=== PATIENT | male | born 1945 | race Caucasian/White ===

== ENCOUNTER 2017-07-21 06:35 | Day surgery (SDC) | payer MEDICARE, BC ==
[2017-07-20 11:25] LABS: BASOPHILS % (AUTO) 0.3 % (0-1); EOSINOPHILS # (AUTO) 0.2 X10'3 (0-0.9); EOSINOPHILS % (AUTO) 2.3 % (0-6); HEMATOCRIT 46.5 % (42.0-52.0); HEMOGLOBIN 16.4 g/dl (14.0-17.9); LYMPHOCYTES # (AUTO) 0.9 X10'3 (1.1-4.8); LYMPHOCYTES % (AUTO) 12.9 % (21-51); MEAN CORPUSCULAR HEMOGLOBIN 32.6 PG (27.0-31.0); MEAN CORPUSCULAR HGB CONC 35.4 % (33.0-36.5); MEAN CORPUSCULAR VOLUME 92.2 FL (78-98); MEAN PLATELET VOLUME 8.9 FL (7.4-10.4); MONOCYTES # (AUTO) 0.5 X10'3 (0-0.9); MONOCYTES % (AUTO) 7.8 % (2-12); NEUTROPHILS # (AUTO) 5.2 X10'3 (1.8-7.7); NEUTROPHILS % (AUTO) 76.7 % (42-75); PLATELET COUNT 234 X10'3 (140-440); RED BLOOD COUNT 5.04 X10'6 (4.70-6.10); RED CELL DISTRIBUTION WIDTH 13.7 % (11.5-14.5); WHITE BLOOD COUNT 6.8 X10'3 (4.5-11.0)
[2017-07-20 11:34] LABS: ALBUMIN 4.2 G/DL (3.4-5.0); ANION GAP 15 (8-16); BLOOD UREA NITROGEN 9 MG/DL (7-18); BUN/CREATININE RATIO 9.7 (5.4-32.0); CALCIUM 9.9 MG/DL (8.5-10.1); CHLORIDE 99 MMOL/L (99-107); CREATININE 0.93 MG/DL (0.60-1.10); GLUCOSE 127 MG/DL (70-104); POTASSIUM 3.8 MMOL/L (3.5-5.1); SODIUM 135 MMOL/L (135-145); eGFR 80 ML/MIN
[2017-07-20 11:35] LABS: PARTIAL THROMBOPLASTIN TIME 29 SECONDS (22-32); PROTHROMBIN TIME 10.2 SECONDS (9.0-12.0)
[2017-07-21] VITALS (13 sets, daily range): BP systolic 88–109; BP diastolic 47–68
[~2017-07-21] VITALS: Ht 162.6 cm; Wt 76.7 kg
[~2017-07-21 06:35] MED LIST: CLOP75TA35 PO; EZET1TAB35 PO; LISI-222 PO; LORA0.5T PO; METO100T7 PO; NITR0.4T51 SL; SILD50TA PO; WEL100T PO
[2017-07-21] MEDS ORDERED: METO100T14 PO (06:58)
[2017-07-21] MEDS ORDERED: ATOR10TA PO (06:58)
[2017-07-21] MEDS ORDERED: SERT25TA PO (06:58)
[2017-07-21] MEDS ORDERED: ondansetron/PF 4mg/2ml inj IV STA (07:32)
[2017-07-21] MEDS ORDERED: fentaNYL/PF 50MCG/1 ML 2ML syringe ONE (07:32)
[2017-07-21] MEDS ORDERED: iohexol 350 MG/ML 50ML vial IV ONE (07:32)
[2017-07-21] MEDS ORDERED: nitroGLYCERIN-Tridil 50MG/D5W 250 ML IV ONE (07:32)
[2017-07-21] MEDS ORDERED: LIDOcaine 1%/PF (10mg/ml) 5ml vial ONE (07:32)
[2017-07-21] MEDS ORDERED: heparin 1,000unit/ml 10ml vial 10 ML ONE (07:32)
[2017-07-21] MEDS ORDERED: iohexol 350MG/ML 100ml bottle IV ONE (07:32)
[2017-07-21] MEDS ORDERED: midazolam 2 mg/2 ml injection ONE (07:32)
[2017-07-21] MEDS ORDERED: normal saline 1000ml 1,000 ML IV SCH (07:45)
[2017-07-21] MEDS ORDERED: diphenhydrAMINE 25mg capsule PO PRN (07:45)
[2017-07-21] MEDS ORDERED: LORazepam 0.5 MG tablet PO PRN (07:45)
[2017-07-21 13:51] LABS: ISTAT Hct MIX 32 %PCV (42-52); ISTAT O2 SATURATION MIX VENOUS 68 % (60-80); ISTAT SOURCE MIX
[2017-07-21 13:51] LABS: ISTAT HGB ART 11.2 g/dl (14.0-18.0); ISTAT Hct ART 33 %PCV (42-52); ISTAT O2 SATURATION ARTERIAL 97 % (95-98); ISTAT SOURCE ART
[2017-07-29] MEDS ORDERED: IMDUR PO (16:13)
== END 2017-07-21 15:35 | disposition home or self-care (01) ==
LOC: SSTAY O 06:35
PROVIDERS: ATTEND Internal Medicine Cardiovascular Disease
DX: I25.118 Atherosclerotic heart disease of native coronary artery with other forms of angina pectoris (principal); E78.5 Hyperlipidemia, unspecified; F41.9 Anxiety disorder, unspecified; G47.30 Sleep apnea, unspecified; I10 Essential (primary) hypertension; I27.20 Pulmonary hypertension, unspecified; I35.0 Nonrheumatic aortic (valve) stenosis; Z79.02 Long term (current) use of antithrombotics/antiplatelets; Z83.3 Family history of diabetes mellitus; Z87.891 Personal history of nicotine dependence; Z98.61 Coronary angioplasty status; Z98.890 Other specified postprocedural states; Z72.89 Other problems related to lifestyle; Z79.899 Other long term (current) drug therapy
CPT/HCPCS: 36415; 80048; 82803; 85014; 85025; 85610; 85730; 93005; 93460; 93567; 99152; 99153; A6257; C1769; J1644; J2001; J2250; J2405; J3010; J3490; J7030; Q0163; Q9967; A4620

== ENCOUNTER 2017-08-02 05:46 | Inpatient (IN) | payer MEDICARE, BC ==
[2017-07-29 13:42] LABS: BASOPHILS % (AUTO) 0.8 % (0-1); EOSINOPHILS # (AUTO) 0.3 X10'3 (0-0.9); EOSINOPHILS % (AUTO) 5.6 % (0-6); LYMPHOCYTES # (AUTO) 1.6 X10'3 (1.1-4.8); LYMPHOCYTES % (AUTO) 28.2 % (21-51); MEAN CORPUSCULAR HEMOGLOBIN 32.7 PG (27.0-31.0); MEAN CORPUSCULAR VOLUME 93.2 FL (78-98); MEAN PLATELET VOLUME 9.5 FL (7.4-10.4); MONOCYTES # (AUTO) 0.7 X10'3 (0-0.9); MONOCYTES % (AUTO) 12.2 % (2-12); NEUTROPHILS % (AUTO) 53.2 % (42-75); PRE OP HEMATOCRIT 41.6 % (42.0-52.0); PRE OP HEMOGLOBIN 14.6 g/dL (14.0-17.9); PRE OP PLATELET COUNT 252 X10'3 (140-440); RED BLOOD COUNT 4.46 X10'6 (4.70-6.10); RED CELL DISTRIBUTION WIDTH 13.6 % (11.5-14.5)
[2017-07-29 13:51] LABS: PRE OP INR 0.9 INR; PRE OP PROTIME 9.7 SECONDS (9.0-12.0)
[2017-07-29 13:51] LABS: CLARITY,URINE CLEAR (Clear); COLOR,URINE YELLOW (Yellow); GLUCOSE, URINE NEGATIVE (Neg); KETONES,URINE NEGATIVE (Neg); LEUKOCYTE ESTERASE ,URINE NEGATIVE (Neg); NITRITES, URINE NEGATIVE (Neg); OCCULT BLOOD,URINE NEGATIVE (Neg); PH,URINE 5.5 (4.8-8.0); PROTEIN,URINE NEGATIVE (Neg); UROBILINOGEN,URINE 0.2 E.U/dL (0.2-1.0)
[2017-07-29 13:53] LABS: HEMOGLOBIN A1C 5.1 % (4.5-6.2)
[2017-07-29 13:56] LABS: UA COLLECTION TYPE CLN CATCH MIDSTREAM
[2017-07-29 14:03] LABS: ALBUMIN 3.7 G/DL (3.4-5.0); ALKALINE PHOSPHATASE 96 IU/L (46-116); BLOOD UREA NITROGEN 12 MG/DL (7-18); BUN/CREATININE RATIO 12.5 (5.4-32.0); CALCIUM 9.6 MG/DL (8.5-10.1); CHLORIDE 103 MMOL/L (99-107); CREATININE 0.96 MG/DL (0.60-1.10); PRE OP ALT 45 U/L (30-65); PRE OP ANION GAP 11 (8-16); PRE OP AST 43 U/L (10-37); PRE OP BILIRUB, TOTAL 0.4 MG/DL (0.0-1.0); PRE OP GLUCOSE 89 MG/DL (70-104); PRE OP POTASSIUM 3.8 MMOL/L (3.4-5.1); PRE OP SODIUM 141 MMOL/L (135-145); TOTAL PROTEIN 7.4 G/DL (6.4-8.2); eGFR 77 ML/MIN
[2017-07-29 15:02] LABS: ABG BASE EXCESS 0.8 mmol/L (-2.0-3.0); ABG HCO3 24.6 mmol/L (22.0-26.0); ABG OXYGEN SATURATION 95.4 % (95-98); ABG PCO2 (T) 36.9 mmHg (35.0-48.0); ABG PH (T) 7.441 (7.350-7.450); ALLEN'S TEST Positive; FCOHb 0.5 % (0.5-1.5); FMetHb 0.2 % (0.3-1.12); FO2Hb 94.7 % (94-100)
[~2017-08-02] VITALS: Ht 162.6 cm; Wt 74.9 kg
[2017-08-02] VITALS (17 sets, daily range): BP systolic 100–136; BP diastolic 58–78
[2017-08-02] MEDS: insulin regular, human inj. 100 UNITS in normal saline 100ml IV IV SCH ×14 (05:30→20:59)
[~2017-08-02 05:46] MED LIST changes: +ATOR10TA PO; -CLOP75TA35 PO; -EZET1TAB35 PO; +IMDUR PO; -LORA0.5T PO; +LORazepam 2 mg/ml vial IV PRN; +METO100T14 PO; -METO100T7 PO; +SERT25TA PO; -SILD50TA PO; -WEL100T PO; +cefazolin/dext.iso 2gm/50ml 50 ML IV ONE; +dextrose 50%-water 50ml dispensing syringe IV PRN; +famotidine 20mg tablet PO ONE; +insulin Lispro (HumaLOG) vial - multi-dose SQ PRN; +metoprolol tartrate 12.5mg (1/2 tablet) PO ONE; +ringers solution, lacted 1,000 ML IV SCH; +vancomycin inj 1,500 MG in normal saline 300ml IV soln IV ONE
[2017-08-02] MEDS: mupirocin 2% ointment 22GM TP SCH ×2 (06:24→20:00)
[2017-08-02] MEDS ORDERED: LIDOcaine 1% (10mg/ml) 2ml vial ONE (06:30)
[2017-08-02] MEDS ORDERED: rocuronium 10mg/ml inj IV ONE ×2 (07:22)
[2017-08-02] MEDS ORDERED: LIDOcaine 2% (20mg/ml) 5ml vial ONE (07:22)
[2017-08-02] MEDS ORDERED: SUFENTANIL CITRATE 50 MCG/ML 2ml ampule IV ONE (07:22)
[2017-08-02] MEDS ORDERED: etomidate 2mg/ml inj. ONE (07:22)
[2017-08-02] MEDS ORDERED: MIDAZolam 1mg/ml 10ml vial ONE (07:22)
[2017-08-02] MEDS ORDERED: phenylephrine 10mg/ml inj IV ONE ×2 (07:27→10:00)
[2017-08-02] MEDS ORDERED: papaverine 30 mg/ml 2ml inj. IA ONE (07:30)
[2017-08-02] MEDS ORDERED: heparin 10,000 units/1 ML INJ IR ONE (07:30)
[2017-08-02] MEDS ORDERED: ipratropium/albuterol 3ml nebule IH PRN (07:50)
[2017-08-02] MEDS ORDERED: heparin 10,000 units/1 ML INJ ONE ×2 (08:00→10:00)
[2017-08-02] MEDS ORDERED: papaverine 30 mg/ml 2ml inj. ONE (08:00)
[2017-08-02 09:15] LABS: ACT @ 1.70 U 313 SEC (193-297); ACT @ 2.84 U 453 SEC (260-420); BASELINE ACT 157 SEC (101-148); PATIENT WEIGHT 74.0k KG
[2017-08-02 09:15] LABS: ABG BASE EXCESS 0.4 mmol/L (-2.0-3.0); ABG HCO3 22.9 mmol/L (22.0-26.0); ABG OXYGEN SATURATION 99.6 % (95-98); ABG PCO2 30.9 mmHg (35.0-45.0); ABG PH 7.487 (7.350-7.450); ABG PO2 359.3 mmHg (60.0-100.0); CL (ABG) 106 mmol/L (99-107); FCOHb 0.2 % (0.5-1.5); FMetHb 0.3 % (0.3-1.12); FO2Hb 99.1 % (94-100); GLUCOSE (ABG) 106 mg/dl (70-105); IONIZED CA (ABG) 1.19 mmol/L (1.03-1.32); K (ABG) 3.8 mmol/L (3.3-5.1); NA (ABG) 136 mmol/L (135-145); TOTAL HEMOGLOBIN 13.8 G/dl (14.0-18.0)
[2017-08-02] MEDS ORDERED: sodium bicarbonate (8.4%) 1 mEq/ml syringe ONE (10:00)
[2017-08-02] MEDS ORDERED: calcium chloride 100 MG/1 ML inj IV ONE (10:00)
[2017-08-02] MEDS ORDERED: MAGNESIUM SULFATE 4 MEQ/ML (1gm/2ml) injection ONE (10:00)
[2017-08-02] MEDS ORDERED: aminocaproic acid 250 MG/1 ML inj. ONE (10:00)
[2017-08-02] MEDS ORDERED: methylPREDNISolone sod. succ. 500mg inj ONE (10:00)
[2017-08-02] MEDS ORDERED: heparin 1,000 units/ml 10ml inj ONE (10:00)
[2017-08-02] MEDS ORDERED: LIDOcaine 2% (20 mg/ml) 5ml cardiac syringe ONE (10:00)
[2017-08-02] MEDS ORDERED: potassium Cl 2 mEq/ml inj IV ONE (10:00)
[2017-08-02 10:26] LABS: ABG BASE EXCESS VENOUS -2.5 mmol/L; ABG HCO3 VENOUS 24.1 mmol/L; ABG PCO2 VENOUS 48.6 mmHg; CL (ABG) 103 mmol/L (99-107); FCOHb VENOUS 0.1 %; FHHb VENOUS 11.9 %; FMetHb VENOUS 0.3 %; FO2Hb VENOUS 87.7 %; GLUCOSE (ABG) 130 mg/dl (70-105); IONIZED CA (ABG) 1.23 mmol/L (1.03-1.32); K (ABG) 4.1 mmol/L (3.3-5.1); NA (ABG) 136 mmol/L (135-145); TOTAL HEMOGLOBIN 13.7 G/dl (14.0-18.0)
[2017-08-02 11:01] LABS: ABG BASE EXCESS -1.2 mmol/L (-2.0-3.0); ABG HCO3 22.8 mmol/L (22.0-26.0); ABG PCO2 35.5 mmHg (35.0-45.0); ABG PH 7.426 (7.350-7.450); ABG PO2 316.4 mmHg (60.0-100.0); CL (ABG) 103 mmol/L (99-107); FCOHb 0.2 % (0.5-1.5); FMetHb 0.3 % (0.3-1.12); FO2Hb 98.5 % (94-100); GLUCOSE (ABG) 113 mg/dl (70-105); IONIZED CA (ABG) 1.03 mmol/L (1.03-1.32); K (ABG) 4.8 mmol/L (3.3-5.1); NA (ABG) 132 mmol/L (135-145); TOTAL HEMOGLOBIN 10.2 G/dl (14.0-18.0)
[2017-08-02 11:25] LABS: ABG BASE EXCESS VENOUS -1.3 mmol/L; ABG HCO3 VENOUS 24.1 mmol/L; ABG PCO2 VENOUS 43.2 mmHg; ABG PO2 VENOUS 37.9 mmHg; CL (ABG) 104 mmol/L (99-107); FMetHb VENOUS 0.4 %; FO2Hb VENOUS 72.6 %; GLUCOSE (ABG) 106 mg/dl (70-105); IONIZED CA (ABG) 1.08 mmol/L (1.03-1.32); K (ABG) 4.9 mmol/L (3.3-5.1); NA (ABG) 134 mmol/L (135-145); TOTAL HEMOGLOBIN 10.9 G/dl (14.0-18.0)
[2017-08-02 11:30] LABS: ABG BASE EXCESS -1.1 mmol/L (-2.0-3.0); ABG HCO3 23.9 mmol/L (22.0-26.0); ABG PCO2 40.7 mmHg (35.0-45.0); ABG PH 7.386 (7.350-7.450); ABG PO2 274.5 mmHg (60.0-100.0); CL (ABG) 105 mmol/L (99-107); FCOHb 0.3 % (0.5-1.5); FMetHb 0.3 % (0.3-1.12); FO2Hb 98.4 % (94-100); GLUCOSE (ABG) 119 mg/dl (70-105); IONIZED CA (ABG) 1.06 mmol/L (1.03-1.32); K (ABG) 4.6 mmol/L (3.3-5.1); NA (ABG) 134 mmol/L (135-145); TOTAL HEMOGLOBIN 11.2 G/dl (14.0-18.0)
[2017-08-02 11:56] LABS: ABG BASE EXCESS 0.4 mmol/L (-2.0-3.0); ABG HCO3 24.7 mmol/L (22.0-26.0); ABG OXYGEN SATURATION 98.8 % (95-98); ABG PCO2 38.7 mmHg (35.0-45.0); ABG PH 7.423 (7.350-7.450); ABG PO2 243.1 mmHg (60.0-100.0); CL (ABG) 108 mmol/L (99-107); FCOHb 0.2 % (0.5-1.5); FMetHb 0.4 % (0.3-1.12); FO2Hb 98.2 % (94-100); GLUCOSE (ABG) 109 mg/dl (70-105); K (ABG) 4.6 mmol/L (3.3-5.1); NA (ABG) 134 mmol/L (135-145); TOTAL HEMOGLOBIN 10.3 G/dl (14.0-18.0)
[2017-08-02 12:31] LABS: ABG BASE EXCESS VENOUS -0.7 mmol/L; ABG HCO3 VENOUS 23.6 mmol/L; ABG PCO2 VENOUS 37.6 mmHg; CL (ABG) 105 mmol/L (99-107); FCOHb VENOUS 0.3 %; FHHb VENOUS 19.4 %; FMetHb VENOUS 0.6 %; FO2Hb VENOUS 79.7 %; GLUCOSE (ABG) 103 mg/dl (70-105); IONIZED CA (ABG) 1.24 mmol/L (1.03-1.32); K (ABG) 3.6 mmol/L (3.3-5.1); NA (ABG) 138 mmol/L (135-145)
[2017-08-02] MEDS ORDERED: nitroGLYCERIN-Tridil 50MG/D5W 250 ML IV PRN (12:49)
[2017-08-02] MEDS ORDERED: niCARDipine/sod cl 20mg/200ml 200 ML IV PRN (12:49)
[2017-08-02] MEDS ORDERED: DOPamine 400mg/D5W 250ml 250 ML IV PRN (12:49)
[2017-08-02] MEDS ORDERED: potassium Cl 20mEq/100mL bag 100 ML IV PRN (12:50)
[2017-08-02] MEDS ORDERED: acetaminophen 325mg tablet PO PRN (12:50)
[2017-08-02] MEDS ORDERED: magnesium hydroxide 30ml (MOM) UD suspension PO PRN (12:50)
[2017-08-02] MEDS ORDERED: sodium phosphate inj. 15 MMOL in dextrose 5%-water 150 ML IV PRN (12:50)
[2017-08-02] MEDS ORDERED: metoclopramide 5 mg/ml inj IV PRN (12:50)
[2017-08-02] MEDS ORDERED: normal saline 250ml IV soln 250 ML IV PRN (12:50)
[2017-08-02] MEDS ORDERED: magnesium 4gm in 100ml NS 100 ML IV PRN (12:50)
[2017-08-02] MEDS ORDERED: insulin regular, human inj. 100 UNITS in normal saline 100ml IV soln 100 ML IV SCH ×2 (12:50)
[2017-08-02] MEDS ORDERED: dextrose 50%-water 50ml dispensing syringe IV PRN (12:50)
[2017-08-02] MEDS ORDERED: sodium phosphate inj. 30 MMOL in dextrose 5%-water 250 ML IV PRN (12:50)
[2017-08-02] MEDS ORDERED: Neutra Phos packet PO PRN (12:50)
[2017-08-02] MEDS ORDERED: morphine 2 MG/ML inj. syringe IV PRN (12:50)
[2017-08-02] MEDS ORDERED: ondansetron/PF 4mg/2ml inj IV PRN (12:50)
[2017-08-02] MEDS ORDERED: insulin Lispro (HumaLOG) vial - multi-dose SQ SCH (13:00)
[2017-08-02 13:10] LABS: ABG BASE EXCESS 1.7 mmol/L (-2.0-3.0); ABG HCO3 25.2 mmol/L (22.0-26.0); ABG OXYGEN SATURATION 95.8 % (95-98); ABG PCO2 (T) 34.4 mmHg (35.0-48.0); ABG PH (T) 7.479 (7.350-7.450); ABG PO2 (T) 76.1 mmHg (83-108); FCOHb 0.3 % (0.5-1.5); FMetHb 0.3 % (0.3-1.12); FO2Hb 95.2 % (94-100); MINUTE VOLUME 10 L/min; PATIENT TEMPERATURE 36.1; PEEP 5 cm H2O; RESPIRATORY RATE 14 b/min; RESPIRATORY RATE (OBSERVED) 14 b/min; TIDAL VOLUME 600 mL; TOTAL HEMOGLOBIN 13.8 G/dl (14.0-18.0)
[2017-08-02 13:17] LABS: BASOPHILS % (AUTO) 0.2 % (0-1); EOSINOPHILS # (AUTO) 0.1 X10'3 (0-0.9); EOSINOPHILS % (AUTO) 1.1 % (0-6); HEMATOCRIT 37.5 % (42.0-52.0); HEMOGLOBIN 13.2 g/dl (14.0-17.9); LYMPHOCYTES # (AUTO) 0.7 X10'3 (1.1-4.8); LYMPHOCYTES % (AUTO) 7.5 % (21-51); MEAN CORPUSCULAR HEMOGLOBIN 32.8 PG (27.0-31.0); MEAN CORPUSCULAR HGB CONC 35.1 % (33.0-36.5); MEAN CORPUSCULAR VOLUME 93.3 FL (78-98); MONOCYTES # (AUTO) 0.5 X10'3 (0-0.9); MONOCYTES % (AUTO) 4.7 % (2-12); NEUTROPHILS # (AUTO) 8.5 X10'3 (1.8-7.7); NEUTROPHILS % (AUTO) 86.5 % (42-75); PLATELET COUNT 164 X10'3 (140-440); RED BLOOD COUNT 4.02 X10'6 (4.70-6.10); RED CELL DISTRIBUTION WIDTH 12.9 % (11.5-14.5); WHITE BLOOD COUNT 9.8 X10'3 (4.5-11.0)
[2017-08-02 13:24] LABS: PARTIAL THROMBOPLASTIN TIME 25 SECONDS (22-32); PROTHROMBIN TIME 10.8 SECONDS (9.0-12.0)
[2017-08-02] MEDS: sodium chloride 0.45% 1,000 ML IV SCH (13:31)
[2017-08-02 13:34] LABS: ALANINE AMINOTRANSFERASE 27 U/L (12-78); ALBUMIN 2.6 G/DL (3.4-5.0); ALKALINE PHOSPHATASE 75 IU/L (46-116); ANION GAP 8 (8-16); ASPARTATE AMINO TRANSFERASE 44 U/L (10-37); BILIRUBIN,TOTAL 0.6 MG/DL (0.1-1.0); BLOOD UREA NITROGEN 14 MG/DL (7-18); BUN/CREATININE RATIO 14.9 (5.4-32.0); CALCIUM 8.6 MG/DL (8.5-10.1); CHLORIDE 110 MMOL/L (99-107); CREATININE 0.94 MG/DL (0.60-1.10); GLUCOSE 103 MG/DL (70-104); SODIUM 145 MMOL/L (135-145); TOTAL PROTEIN 5.2 G/DL (6.4-8.2); eGFR 79 ML/MIN
[2017-08-02 13:36] LABS: PHOSPHORUS 1.1 MG/DL (2.3-4.5)
[2017-08-02] MEDS: potassium Cl 20mEq/100mL bag 100 ML IV PRN ×5 (13:41→21:23)
[2017-08-02 14:06] LABS: ACTIVATED CLOTTING TIME 125 SEC (101-148)
[2017-08-02] MEDS: morphine 2 MG/ML inj. syringe IV PRN ×5 (14:20→23:53)
[2017-08-02] MEDS: cefazolin 1gm/NS 100mL 100 ML IV SCH ×2 (16:37→23:45)
[2017-08-02 17:25] LABS: ABG BASE EXCESS -3.5 mmol/L (-2.0-3.0); ABG HCO3 21.1 mmol/L (22.0-26.0); ABG OXYGEN SATURATION 95.6 % (95-98); ABG PCO2 (T) 36.2 mmHg (35.0-48.0); ABG PH (T) 7.383 (7.350-7.450); ABG PO2 (T) 82.3 mmHg (83-108); FCOHb 0.3 % (0.5-1.5); FMetHb 0.4 % (0.3-1.12); FO2Hb 94.9 % (94-100); MINUTE VOLUME 9 L/min; PATIENT TEMPERATURE 36.6; PEEP 5 cm H2O
[2017-08-02] MEDS ORDERED: ePHEDrine 50MG/ML INJ. ONE (19:16)
[2017-08-02 20:06] LABS: BASOPHILS % (AUTO) 0 % (0-1); EOSINOPHILS # (AUTO) 0.2 X10'3 (0-0.9); EOSINOPHILS % (AUTO) 1.7 % (0-6); HEMATOCRIT 38.7 % (42.0-52.0); HEMOGLOBIN 13.3 g/dl (14.0-17.9); LYMPHOCYTES # (AUTO) 0.3 X10'3 (1.1-4.8); LYMPHOCYTES % (AUTO) 3.2 % (21-51); MEAN CORPUSCULAR HEMOGLOBIN 32.5 PG (27.0-31.0); MEAN CORPUSCULAR HGB CONC 34.5 % (33.0-36.5); MEAN CORPUSCULAR VOLUME 94.4 FL (78-98); MEAN PLATELET VOLUME 9.3 FL (7.4-10.4); MONOCYTES # (AUTO) 0.3 X10'3 (0-0.9); MONOCYTES % (AUTO) 2.6 % (2-12); NEUTROPHILS # (AUTO) 10.1 X10'3 (1.8-7.7); NEUTROPHILS % (AUTO) 92.5 % (42-75); PLATELET COUNT 187 X10'3 (140-440)
[2017-08-02] MEDS: docusate sod 100mg capsule PO SCH (20:06)
[2017-08-02] MEDS: vancomycin/NS 1 GM ADD-VANTAGE 250 ML IV SCH (20:06)
[2017-08-02] MEDS: mupirocin 2% ointment 22GM NS SCH (20:07)
[2017-08-02 20:18] LABS: ALBUMIN 2.9 G/DL (3.4-5.0); ANION GAP 13 (8-16); BLOOD UREA NITROGEN 15 MG/DL (7-18); BUN/CREATININE RATIO 11.5 (5.4-32.0); CALCIUM 8.5 MG/DL (8.5-10.1); CHLORIDE 109 MMOL/L (99-107); GLUCOSE 234 MG/DL (70-104); POTASSIUM 4.3 MMOL/L (3.5-5.1); SODIUM 144 MMOL/L (135-145); TOTAL CARBON DIOXIDE 22.3 MMOL/L (24-32); eGFR 54 ML/MIN
[2017-08-03] VITALS (23 sets, daily range): BP systolic 106–159; BP diastolic 60–91
[2017-08-03] MEDS: insulin regular, human inj. 100 UNITS in normal saline 100ml IV IV SCH ×8 (01:13→06:08)
[2017-08-03] MEDS: HYDROcodone/acetaminophen 10/325mg tab PO PRN ×5 (01:13→20:33)
[2017-08-03] MEDS ORDERED: morphine 4 MG/ML inj SYRINge ONE (01:34)
[2017-08-03] MEDS: morphine 2 MG/ML inj. syringe IV PRN ×2 (01:40→07:23)
[2017-08-03 02:49] LABS: BASOPHILS % (AUTO) 0 % (0-1); EOSINOPHILS # (AUTO) 0.1 X10'3 (0-0.9); EOSINOPHILS % (AUTO) 1.3 % (0-6); HEMATOCRIT 37.3 % (42.0-52.0); LYMPHOCYTES # (AUTO) 0.7 X10'3 (1.1-4.8); LYMPHOCYTES % (AUTO) 6.1 % (21-51); MEAN CORPUSCULAR HEMOGLOBIN 32.6 PG (27.0-31.0); MEAN CORPUSCULAR HGB CONC 34.8 % (33.0-36.5); MEAN CORPUSCULAR VOLUME 93.7 FL (78-98); MEAN PLATELET VOLUME 9.7 FL (7.4-10.4); MONOCYTES # (AUTO) 0.7 X10'3 (0-0.9); MONOCYTES % (AUTO) 5.6 % (2-12); NEUTROPHILS # (AUTO) 10.2 X10'3 (1.8-7.7); PLATELET COUNT 190 X10'3 (140-440); RED BLOOD COUNT 3.99 X10'6 (4.70-6.10); RED CELL DISTRIBUTION WIDTH 13.2 % (11.5-14.5); WHITE BLOOD COUNT 11.8 X10'3 (4.5-11.0)
[2017-08-03 03:01] LABS: PARTIAL THROMBOPLASTIN TIME 24 SECONDS (22-32); PROTHROMBIN TIME 10.2 SECONDS (9.0-12.0)
[2017-08-03 03:05] LABS: ALANINE AMINOTRANSFERASE 31 U/L (12-78); ALBUMIN 2.9 G/DL (3.4-5.0); ALKALINE PHOSPHATASE 65 IU/L (46-116); ANION GAP 10 (8-16); ASPARTATE AMINO TRANSFERASE 48 U/L (10-37); BILIRUBIN,TOTAL 0.3 MG/DL (0.1-1.0); BLOOD UREA NITROGEN 15 MG/DL (7-18); BUN/CREATININE RATIO 13.8 (5.4-32.0); CALCIUM 8.3 MG/DL (8.5-10.1); CHLORIDE 111 MMOL/L (99-107); CREATININE 1.09 MG/DL (0.60-1.10); GLUCOSE 137 MG/DL (70-104); MAGNESIUM 2.2 MG/DL (1.5-2.4); PHOSPHORUS 3.7 MG/DL (2.3-4.5); POTASSIUM 4.2 MMOL/L (3.5-5.1); SODIUM 145 MMOL/L (135-145); TOTAL CARBON DIOXIDE 23.8 MMOL/L (24-32); TOTAL PROTEIN 5.8 G/DL (6.4-8.2); eGFR 66 ML/MIN
[2017-08-03] MEDS: magnesium 2GM in 50ml NS 50 ML IV PRN (03:29)
[2017-08-03] MEDS: potassium Cl 20mEq/100mL bag 100 ML IV PRN (04:54)
[2017-08-03] MEDS: metoprolol tartrate 12.5mg (1/2 tablet) PO SCH ×2 (07:26→20:31)
[2017-08-03] MEDS: pantoprazole 40mg Tablet.DR PO SCH (07:27)
[2017-08-03] MEDS: atorvastatin 10mg tablet PO SCH (07:27)
[2017-08-03] MEDS: docusate sod 100mg capsule PO SCH ×2 (07:28→20:31)
[2017-08-03] MEDS: mupirocin 2% ointment 22GM NS SCH ×2 (07:28→20:30)
[2017-08-03] MEDS: sertraline 50mg tablet PO SCH (07:28)
[2017-08-03] MEDS: aspirin 325mg tablet, delayed-release (Ecotrin) PO SCH (07:28)
[2017-08-03] MEDS: cefazolin 1gm/NS 100mL 100 ML IV SCH ×3 (07:29→23:40)
[2017-08-03] MEDS: vancomycin/NS 1 GM ADD-VANTAGE 250 ML IV SCH ×2 (07:29→20:30)
[2017-08-03] MEDS ORDERED: DOPamine/D5W 400mg/250ml bag IV ONE (08:14)
[2017-08-03] MEDS ORDERED: isoflurane 100ml inhalation liquid IH ONE (08:14)
[2017-08-03] MEDS ORDERED: nitroGLYCERIN in D5W 50mg/250ml (Tridil) infusion IV ONE (08:14)
[2017-08-03] MEDS: mupirocin 2% ointment 22GM TP SCH ×2 (08:44→20:00)
[2017-08-03] MEDS: Protein Shake (high protein) 240ml (8oz) cup PO SCH ×2 (13:00→20:29)
[2017-08-04] VITALS (24 sets, daily range): BP systolic 110–163; BP diastolic 64–96
[2017-08-04 05:35] LABS: BASOPHILS % (AUTO) 0.1 % (0-1); EOSINOPHILS # (AUTO) 0.1 X10'3 (0-0.9); HEMATOCRIT 32.3 % (42.0-52.0); HEMOGLOBIN 11.2 g/dl (14.0-17.9); LYMPHOCYTES # (AUTO) 0.9 X10'3 (1.1-4.8); LYMPHOCYTES % (AUTO) 8.4 % (21-51); MEAN CORPUSCULAR HEMOGLOBIN 32.4 PG (27.0-31.0); MEAN CORPUSCULAR HGB CONC 34.6 % (33.0-36.5); MEAN CORPUSCULAR VOLUME 93.8 FL (78-98); MONOCYTES # (AUTO) 0.7 X10'3 (0-0.9); MONOCYTES % (AUTO) 7.2 % (2-12); NEUTROPHILS # (AUTO) 8.6 X10'3 (1.8-7.7); NEUTROPHILS % (AUTO) 83.3 % (42-75); PLATELET COUNT 157 X10'3 (140-440); RED BLOOD COUNT 3.45 X10'6 (4.70-6.10); RED CELL DISTRIBUTION WIDTH 13.4 % (11.5-14.5); WHITE BLOOD COUNT 10.3 X10'3 (4.5-11.0)
[2017-08-04 05:53] LABS: ALBUMIN 2.8 G/DL (3.4-5.0); ANION GAP 9 (8-16); BLOOD UREA NITROGEN 15 MG/DL (7-18); BUN/CREATININE RATIO 17.9 (5.4-32.0); CALCIUM 8.2 MG/DL (8.5-10.1); CHLORIDE 106 MMOL/L (99-107); CREATININE 0.84 MG/DL (0.60-1.10); GLUCOSE 136 MG/DL (70-104); MAGNESIUM 2.2 MG/DL (1.5-2.4); PHOSPHORUS 3.5 MG/DL (2.3-4.5); POTASSIUM 4.4 MMOL/L (3.5-5.1); SODIUM 141 MMOL/L (135-145); TOTAL CARBON DIOXIDE 26.5 MMOL/L (24-32); eGFR 90 ML/MIN
[2017-08-04] MEDS: pantoprazole 40mg Tablet.DR PO SCH (07:46)
[2017-08-04] MEDS: mupirocin 2% ointment 22GM NS SCH (07:47)
[2017-08-04] MEDS: sertraline 50mg tablet PO SCH (07:47)
[2017-08-04] MEDS: mupirocin 2% ointment 22GM TP SCH ×2 (07:47→19:58)
[2017-08-04] MEDS: docusate sod 100mg capsule PO SCH ×2 (07:47→19:57)
[2017-08-04] MEDS: metoprolol tartrate 25mg tablet PO SCH ×2 (07:47→19:57)
[2017-08-04] MEDS: atorvastatin 10mg tablet PO SCH (07:47)
[2017-08-04] MEDS: aspirin 325mg tablet, delayed-release (Ecotrin) PO SCH (07:47)
[2017-08-04] MEDS: HYDROcodone/acetaminophen 10/325mg tab PO PRN ×2 (07:59→16:07)
[2017-08-04] MEDS: potassium Cl 20mEq/100mL bag 100 ML IV PRN (08:00)
[2017-08-04] MEDS: Protein Shake (high protein) 240ml (8oz) cup PO SCH ×3 (08:10→18:24)
[2017-08-04] MEDS: sodium chloride 0.45% 1,000 ML IV SCH (12:49)
[2017-08-04] MEDS: magnesium 2GM in 50ml NS 50 ML IV PRN (13:32)
[2017-08-05] VITALS (18 sets, daily range): BP systolic 87–169; BP diastolic 60–104
[2017-08-05] MEDS: insulin regular, human inj. 100 UNITS in normal saline 100ml IV IV SCH ×2 (00:10)
[2017-08-05] MEDS: HYDROcodone/acetaminophen 10/325mg tab PO PRN ×3 (02:37→19:16)
[2017-08-05 03:01] LABS: BASOPHILS % (AUTO) 0.2 % (0-1); EOSINOPHILS # (AUTO) 0.1 X10'3 (0-0.9); EOSINOPHILS % (AUTO) 1.9 % (0-6); HEMATOCRIT 32.9 % (42.0-52.0); HEMOGLOBIN 11.4 g/dl (14.0-17.9); LYMPHOCYTES % (AUTO) 13.3 % (21-51); MEAN CORPUSCULAR HEMOGLOBIN 32.7 PG (27.0-31.0); MEAN CORPUSCULAR HGB CONC 34.5 % (33.0-36.5); MEAN CORPUSCULAR VOLUME 94.8 FL (78-98); MEAN PLATELET VOLUME 10.1 FL (7.4-10.4); MONOCYTES # (AUTO) 0.6 X10'3 (0-0.9); MONOCYTES % (AUTO) 8.3 % (2-12); NEUTROPHILS # (AUTO) 5.6 X10'3 (1.8-7.7); NEUTROPHILS % (AUTO) 76.3 % (42-75); PLATELET COUNT 143 X10'3 (140-440); RED BLOOD COUNT 3.47 X10'6 (4.70-6.10); WHITE BLOOD COUNT 7.4 X10'3 (4.5-11.0)
[2017-08-05 03:06] LABS: ALBUMIN 2.6 G/DL (3.4-5.0); ANION GAP 7 (8-16); BLOOD UREA NITROGEN 13 MG/DL (7-18); BUN/CREATININE RATIO 17.3 (5.4-32.0); CALCIUM 8.4 MG/DL (8.5-10.1); CHLORIDE 105 MMOL/L (99-107); CREATININE 0.75 MG/DL (0.60-1.10); GLUCOSE 113 MG/DL (70-104); MAGNESIUM 2.2 MG/DL (1.5-2.4); PHOSPHORUS 2.8 MG/DL (2.3-4.5); POTASSIUM 3.6 MMOL/L (3.5-5.1); SODIUM 141 MMOL/L (135-145); TOTAL CARBON DIOXIDE 29.5 MMOL/L (24-32); eGFR > 90 ML/MIN
[2017-08-05] MEDS: pantoprazole 40mg Tablet.DR PO SCH (07:28)
[2017-08-05] MEDS: aspirin 325mg tablet, delayed-release (Ecotrin) PO SCH (07:28)
[2017-08-05] MEDS: metoprolol tartrate 25mg tablet PO SCH ×2 (07:28→19:17)
[2017-08-05] MEDS: docusate sod 100mg capsule PO SCH ×2 (07:28→19:17)
[2017-08-05] MEDS: sertraline 50mg tablet PO SCH (07:28)
[2017-08-05] MEDS: atorvastatin 10mg tablet PO SCH (07:29)
[2017-08-05] MEDS ORDERED: potassium Cl 20 mEq SR tablet PO PRN ×2 (07:30)
[2017-08-05] MEDS ORDERED: magnesium 2GM in 50ml NS 50 ML IV PRN (07:30)
[2017-08-05] MEDS ORDERED: magnesium 4gm in 100ml NS 100 ML IV PRN (07:30)
[2017-08-05] MEDS ORDERED: magnesium Cl slow-release 64mg tablet PO PRN (07:30)
[2017-08-05] MEDS ORDERED: potassium Cl 40MEQ/NS 500ml 500 ML IV PRN ×2 (07:30)
[2017-08-05] MEDS: K and/or MAG REPLACEMENT MC SCH (08:00)
[2017-08-05] MEDS: potassium Cl 20 mEq SR tablet PO SCH ×2 (08:08→19:17)
[2017-08-05] MEDS: Protein Shake (high protein) 240ml (8oz) cup PO SCH ×3 (08:08→18:39)
[2017-08-05] MEDS: magnesium Cl slow-release 64mg tablet PO SCH ×2 (08:08→19:57)
[2017-08-06 03:00] VITALS: BP 151/91
[2017-08-06 06:00] VITALS: BP 145/82
[2017-08-06 06:34] LABS: BASOPHILS % (AUTO) 0.4 % (0-1); EOSINOPHILS # (AUTO) 0.5 X10'3 (0-0.9); EOSINOPHILS % (AUTO) 7.9 % (0-6); HEMATOCRIT 37.7 % (42.0-52.0); HEMOGLOBIN 13.1 g/dl (14.0-17.9); LYMPHOCYTES % (AUTO) 15.6 % (21-51); MEAN CORPUSCULAR HEMOGLOBIN 32.6 PG (27.0-31.0); MEAN CORPUSCULAR HGB CONC 34.9 % (33.0-36.5); MEAN CORPUSCULAR VOLUME 93.6 FL (78-98); MEAN PLATELET VOLUME 9.6 FL (7.4-10.4); MONOCYTES # (AUTO) 0.6 X10'3 (0-0.9); NEUTROPHILS # (AUTO) 4.2 X10'3 (1.8-7.7); NEUTROPHILS % (AUTO) 67.1 % (42-75); PLATELET COUNT 194 X10'3 (140-440); RED BLOOD COUNT 4.03 X10'6 (4.70-6.10); WHITE BLOOD COUNT 6.3 X10'3 (4.5-11.0)
[2017-08-06 06:48] LABS: ALBUMIN 2.6 G/DL (3.4-5.0); ANION GAP 9 (8-16); BLOOD UREA NITROGEN 13 MG/DL (7-18); BUN/CREATININE RATIO 16.9 (5.4-32.0); CHLORIDE 105 MMOL/L (99-107); CREATININE 0.77 MG/DL (0.60-1.10); GLUCOSE 92 MG/DL (70-104); MAGNESIUM 1.8 MG/DL (1.5-2.4); POTASSIUM 3.6 MMOL/L (3.5-5.1); SODIUM 142 MMOL/L (135-145); TOTAL CARBON DIOXIDE 27.6 MMOL/L (24-32); eGFR > 90 ML/MIN
[2017-08-06] MEDS: magnesium Cl slow-release 64mg tablet PO SCH ×2 (07:45→20:01)
[2017-08-06] MEDS: pantoprazole 40mg Tablet.DR PO SCH (07:45)
[2017-08-06] MEDS: docusate sod 100mg capsule PO SCH ×2 (07:45→20:00)
[2017-08-06] MEDS: aspirin 325mg tablet, delayed-release (Ecotrin) PO SCH (07:45)
[2017-08-06] MEDS: atorvastatin 10mg tablet PO SCH (07:45)
[2017-08-06] MEDS: metoprolol tartrate 25mg tablet PO SCH ×2 (07:46→20:01)
[2017-08-06] MEDS: sertraline 50mg tablet PO SCH (07:46)
[2017-08-06] MEDS: potassium Cl 20 mEq SR tablet PO SCH ×2 (07:46→20:02)
[2017-08-06] MEDS: K and/or MAG REPLACEMENT MC SCH (07:50)
[2017-08-06] MEDS: Protein Shake (high protein) 240ml (8oz) cup PO SCH ×3 (08:00→18:55)
[2017-08-06] MEDS: HYDROcodone/acetaminophen 10/325mg tab PO PRN ×2 (08:59→20:05)
[2017-08-06] MEDS ORDERED: magnesium citrate 296ml oral solution PO ONE (09:30)
[2017-08-06 11:00] VITALS: BP 118/81
[2017-08-06 18:00] VITALS: BP 137/79
[2017-08-06 22:00] VITALS: BP 136/81
[2017-08-07 02:00] VITALS: BP 143/92
[2017-08-07 06:00] VITALS: BP 142/82
[2017-08-07 06:11] LABS: BASOPHILS % (AUTO) 0.5 % (0-1); EOSINOPHILS # (AUTO) 0.6 X10'3 (0-0.9); EOSINOPHILS % (AUTO) 9.3 % (0-6); HEMATOCRIT 38.4 % (42.0-52.0); HEMOGLOBIN 13.6 g/dl (14.0-17.9); LYMPHOCYTES # (AUTO) 1.1 X10'3 (1.1-4.8); LYMPHOCYTES % (AUTO) 18.3 % (21-51); MEAN CORPUSCULAR HEMOGLOBIN 32.9 PG (27.0-31.0); MEAN CORPUSCULAR HGB CONC 35.3 % (33.0-36.5); MEAN PLATELET VOLUME 9.4 FL (7.4-10.4); MONOCYTES # (AUTO) 0.7 X10'3 (0-0.9); MONOCYTES % (AUTO) 11.6 % (2-12); NEUTROPHILS # (AUTO) 3.7 X10'3 (1.8-7.7); NEUTROPHILS % (AUTO) 60.3 % (42-75); PLATELET COUNT 220 X10'3 (140-440); RED BLOOD COUNT 4.13 X10'6 (4.70-6.10); RED CELL DISTRIBUTION WIDTH 12.9 % (11.5-14.5); WHITE BLOOD COUNT 6.2 X10'3 (4.5-11.0)
[2017-08-07 07:11] LABS: ALBUMIN 2.6 G/DL (3.4-5.0); ANION GAP 9 (8-16); BLOOD UREA NITROGEN 18 MG/DL (7-18); BUN/CREATININE RATIO 23.4 (5.4-32.0); CHLORIDE 104 MMOL/L (99-107); CREATININE 0.77 MG/DL (0.60-1.10); GLUCOSE 99 MG/DL (70-104); MAGNESIUM 2.1 MG/DL (1.5-2.4); POTASSIUM 3.9 MMOL/L (3.5-5.1); SODIUM 140 MMOL/L (135-145); TOTAL CARBON DIOXIDE 26.7 MMOL/L (24-32); eGFR > 90 ML/MIN
[2017-08-07] MEDS: K and/or MAG REPLACEMENT MC SCH (08:00)
[2017-08-07] MEDS: docusate sod 100mg capsule PO SCH (08:07)
[2017-08-07] MEDS: potassium Cl 20 mEq SR tablet PO SCH (08:07)
[2017-08-07] MEDS: magnesium Cl slow-release 64mg tablet PO SCH (08:07)
[2017-08-07] MEDS: pantoprazole 40mg Tablet.DR PO SCH (08:07)
[2017-08-07] MEDS: atorvastatin 10mg tablet PO SCH (08:07)
[2017-08-07] MEDS: sertraline 50mg tablet PO SCH (08:08)
[2017-08-07] MEDS: aspirin 325mg tablet, delayed-release (Ecotrin) PO SCH (08:08)
[2017-08-07] MEDS: metoprolol tartrate 25mg tablet PO SCH (08:08)
[2017-08-07] MEDS: Protein Shake (high protein) 240ml (8oz) cup PO SCH ×2 (08:08→13:23)
[2017-08-07] MEDS ORDERED: COL100C PO (10:35)
[2017-08-07] MEDS ORDERED: METO25TA6 PO (10:35)
[2017-08-07] MEDS ORDERED: ATOR10TA PO (10:35)
[2017-08-07] MEDS ORDERED: ASPI-41 PO (10:35)
== END 2017-08-07 14:15 | disposition home health service (06) | DRG 236 ==
LOC: PAS IN 05:46 → EDSTATUS 07:30 → CICU 2S 08:47 → PCU 3S 08-05 16:10
PROVIDERS: ADMIT Thoracic Surgery (Cardiothoracic Vascular Surgery); ATTEND Thoracic Surgery (Cardiothoracic Vascular Surgery)
PROC: 021109W Bypass Coronary Artery, Two Arteries from Aorta with Autologous Venous Tissue, Open Approach (ICD-10-PCS; 2017-08-02)
PROC: 06BQ4ZZ Excision of Left Saphenous Vein, Percutaneous Endoscopic Approach (ICD-10-PCS; 2017-08-02)
PROC: 5A1221Z Performance of Cardiac Output, Continuous (ICD-10-PCS; 2017-08-02)
PROC: B24BZZ4 Ultrasonography of Heart with Aorta, Transesophageal (ICD-10-PCS; 2017-08-02)
PROC: 02HP32Z Insertion of Monitoring Device into Pulmonary Trunk, Percutaneous Approach (ICD-10-PCS; 2017-08-02)
PROC: 4A133B3 Monitoring of Arterial Pressure, Pulmonary, Percutaneous Approach (ICD-10-PCS; 2017-08-02)
PROC: 4A1239Z Monitoring of Cardiac Output, Percutaneous Approach (ICD-10-PCS; 2017-08-02)
PROC: 02HV33Z Insertion of Infusion Device into Superior Vena Cava, Percutaneous Approach (ICD-10-PCS; 2017-08-02)
PROC: 02100Z9 Bypass Coronary Artery, One Artery from Left Internal Mammary, Open Approach (ICD-10-PCS; principal; 2017-08-02 08:14)
DX: I25.110 Atherosclerotic heart disease of native coronary artery with unstable angina pectoris (principal); E78.5 Hyperlipidemia, unspecified; G47.33 Obstructive sleep apnea (adult) (pediatric); F41.9 Anxiety disorder, unspecified; I08.0 Rheumatic disorders of both mitral and aortic valves; I10 Essential (primary) hypertension; Z95.5 Presence of coronary angioplasty implant and graft; Z87.891 Personal history of nicotine dependence; Z83.3 Family history of diabetes mellitus
CPT/HCPCS: 0232T; 93312; 93325; 36415; 36600; 71045; 71046; 80048; 80053; 81003; 82330; 82435; 82800; 82803; 82947; 82948; 83036; 83735; 84100; 84132; 84295; 85018; 85025; 85347; 85384; 85610; 85730; 86885; 86900; 86901; 86920; 87070; 88305; 93005; 93880; 93970; 94002; 94010; 94760; 97110; 97116; 97162; 97530; A6213; A6255; A6257; A6258; A6402; A6446; A6449; A7000; A7048; C1751; J0690; J1265; J1644; J1815; J2001; J2060; J2150; J2250; J2270; J2370; J2440; J2930; J3370; J3475; J3480; J3490; J7030; J7060; J7120